=== PATIENT | male | born 1965 ===

== ENCOUNTER 2020-10-03 19:25 | Outpatient (CLI) | payer BC | END 2020-10-03 19:26 | disposition home or self-care (01) | LOC: COV 19:25 | PROVIDERS: ATTEND Family Medicine | DX: R50.9 Fever, unspecified (principal); R05 Cough; R19.7 Diarrhea, unspecified; R11.2 Nausea with vomiting, unspecified; R12 Heartburn; Z20.822 Contact with and (suspected) exposure to COVID-19 ==